=== PATIENT | female | born 1955 | race Caucasian/White ===

== ENCOUNTER → 2018-06-25 | Outpatient (CLI) | payer MEDICARE ==
[~2018-06-25] MED LIST: ACCUNEB SO1.25 MG/1 INH; ATROPINE CARE5 ML BUCCAL; LIORESAL 10 MG10 MG PO; ROXANOL 20 M20 MG/ML SL; VENTOLIN HFA 1818 GM INH
== END ==
LOC: M.WC 12:48
DX: L89.323 Pressure ulcer of left buttock, stage 3 (principal); G35 Multiple sclerosis; Z96.649 Presence of unspecified artificial hip joint